=== PATIENT | female | born 1945 | race Asian ===

== ENCOUNTER 2023-05-29 07:04 | Emergency (ER) | payer MEDICAID ==
[~2023-05-29] VITALS: Ht 153 cm; Wt 59.1 kg
[2023-05-29] MEDS ORDERED: AMLO-257 PO (07:11)
[2023-05-29] MEDS ORDERED: HYDR25TA PO (07:11)
[2023-05-29] MEDS ORDERED: LISI-894 PO (07:11)
[2023-05-29 07:12] VITALS: TEMP 98.1
[2023-05-29] MEDS ORDERED: IBUP-1492 PO (08:49)
[2023-05-29] MEDS ORDERED: CEPH-558 PO (08:50)
[2023-05-29 09:00] VITALS: BP 158/92; PULSE 86; RESP 16
== END 2023-05-29 09:20 | disposition home or self-care (01) ==
LOC: EMS 07:05
DX: S02.32XA Fracture of orbital floor, left side, initial encounter for closed fracture (principal); I10 Essential (primary) hypertension; Z98.890 Other specified postprocedural states; W19.XXXA Unspecified fall, initial encounter; Y93.89 Activity, other specified; Y92.89 Other specified places as the place of occurrence of the external cause; Y99.8 Other external cause status
CPT/HCPCS: 70486; 71045; 73503; 99284